=== PATIENT | male | born 1995 | race Caucasian/White ===

== ENCOUNTER 2022-06-04 18:34 | Emergency (ER) | payer OTHER, SELFPAY ==
[2022-06-04 18:38] VITALS: BP 135/96; PULSE 80; RESP 16; TEMP 36.6; O2SAT 99; BMI 30.9
--- NOTE | 2022-06-04 18:42 | DI.RAD.S_ITS ---
PROCEDURE: XR TIBIA FUBULA RT 2V INDICATIONS: achilles pain- heard pop in calf playing basketball TECHNIQUE: 2 views of the tibia and fibula were acquired. COMPARISON: None. FINDINGS: Bones: No displaced fracture. No dislocation. A linear lucency in the tibia is favored to represent a vascular channel. Soft tissues: No suspicious calcifications. Tendinous structures are not well evaluated on radiograph. IMPRESSION: No acute radiographic osseous abnormality. If there is concern for tendinous injury, consider MRI evaluation. Achilles tendon injury can also be evaluated with ultrasound if there is concern for rupture. Dictated by: Dusty Sharpe M.D. on 06/04/2022 at 19:11 Approved by: Dusty Sharpe M.D. on 06/04/2022 at 19:13
--- NOTE | 2022-06-04 18:51 | ED.LOWEXIN ---
HPI - Extremity Injury (Lower) General Chief Complaint: Extremity Injury, Lower Stated Complaint: RLE injury Time Seen by Provider: 06/04/22 18:43 History of Present Illness HPI Narrative: Patient is a 27-year-old healthy male who presents with right lower leg injury. He thinks he ruptured his Achilles tendon. He was playing baseball he went to run he heard a snap he had instant calf pain. He has limited flexion and extension of his ankle and calf pain. He came by ambulance he received a dose of fentanyl. He has no knee pain or other injury. Related Data Previous Rx's Medication Instructions Recorded hydrocodone 5 mg-acetaminophen 325 1 tab PO Q6H PRN pain #10 tabs 06/04/22 mg tablet Allergies Allergy/AdvReac Type Severity Reaction Status Date / Time No Known Drug Allergies Allergy Verified 06/04/22 19:57 Review of Systems Review of Systems ROS Unobtainable: All systems reviewed & are unremarkable except as noted in HPI and below Exam Initial Vital Signs Initial Vital Signs: Vital Signs Temperature 97.8 F 06/04/22 18:38 Pulse Rate 80 06/04/22 18:38 Respiratory Rate 16 06/04/22 18:38 Blood Pressure 135/96 H 06/04/22 18:38 Pulse Oximetry 99 06/04/22 18:38 Oxygen Delivery Method Room Air 06/04/22 18:38 GENERAL: Healthy 27-year-old male CARDIOVASCULAR: peripheral pulses in tact, cap refill <2 sec RESPIRATORY: No respiratory distress, speaks in full sentences without difficulty EXTREMITIES: Normal range of motion, no clubbing or edema. Neurovascularly intact Right knee within normal limits right ankle no deformity distal pedal pulse intact Achilles tendon is not felt, positive Post sign on the right negative Post sign on the left NEUROLOGICAL: Cranial nerves II through XII grossly intact. Normal gait and speech. SKIN: Warm, dry, no petechiae, no rashes or lesions. Course Orders Ordered: ED Orders 06/04/22 18:42 XR tibia fibula RT 2V Stat Discontinued Medications Hydrocodone Bitart/Acetaminophen (Hydrocodone/Acet 5/325 Prepack) 1 bottle MISC SEEINSTR ONE Stop: 06/04/22 19:41 Last Admin: 06/04/22 20:03 Dose: 1 bottle Documented By: GC Ketorolac Tromethamine (Ketorolac 30 Mg/Ml Vial) 15 mg IV NOW ONE Stop: 06/04/22 19:41 Last Admin: 06/04/22 20:02 Dose: 15 mg Documented By: OANH Vital Signs Vital signs: Vital Signs - 8 hr 06/04/22 18:38 06/04/22 19:15 06/04/22 20:17 Temperature 97.8 F 97.6 F Pulse Rate 80 76 Pulse Rate [Left Dorsalis Pedis] 70 Respiratory Rate 16 16 Blood Pressure 135/96 H 132/70 Pulse Oximetry 99 99 Oxygen Delivery Method Room Air Room Air MDM - Extremity Injury (Lower) Imaging Data Extremity x-ray #1: Radiologist's Impression: PROCEDURE:? XR TIBIA FUBULA RT 2V ? INDICATIONS:? achilles pain- heard pop in calf playing basketball ? TECHNIQUE:? 2 views of the tibia and fibula were acquired.? ? COMPARISON:? None. ? FINDINGS:? ? Bones:? No displaced fracture.? No dislocation.? A linear lucency in the tibia is favored to represent a vascular channel. ? Soft tissues:? No suspicious calcifications.? Tendinous structures are not well evaluated on radiograph. ? IMPRESSION:? No acute radiographic osseous abnormality.? If there is concern for tendinous injury, consider MRI evaluation.? Achilles tendon injury can also be evaluated with ultrasound if there is concern for rupture.? ? ? Dictated by: Dusty Sharpe M.D. on 06/04/2022 at 19:11 ? ? [facility] Narrative Medical decision making narrative: Patient 27-year-old male who presents with right Achilles rupture. He is neurovascularly intact. Dr. Teresa orthopedics has been consulted recommends boot with an elevated heel minimal weight-bearing follow-up in clinic. Will need surgery not emergent and currently the OR is not in service. Discharge Plan Departure Patient Disposition: Home Clinical Impression: Rupture, tendon, Achilles Qualifiers: Encounter type: initial encounter Laterality: right Qualified Code(s): S86.011A - Strain of right Achilles tendon, initial encounter Instructions: DI for Achilles Tendon Rupture Activity Restrictions/Additional Instructions: *You have been diagnosed with Achilles tendon rupture *What to do: Keep foot in boot and use crutches minimal weight-bearing, sleeping boot You will need surgery, unclear of exact timeline, our OR is currently shut down but expected to be back up and running later this week *Continue to take medications as directed [place] 1 tablet every 6 hours if needed for severe pain--> SENT TO DOD Motrin 600 mg every 6 hours if needed for [id number] pain *Follow up with your primary care provider in 2-3 days or call [phone] Call orthopedics tomorrow to schedule follow-up appointment *Return to ER if you should have increasing pain swelling numbness tingling [or] any new, worsening or concerning symptoms CONTROLLED SUBSTANCE DISCHARGE (Narcotoic/benzodiazepine/Flexeril/Phenergan) 1. You have been prescribed narcotic medications, it does have acetaminophen/Tylenol/paracetamol in it, DO NOT TAKE MORE THAN 4,00mg in 24 hours of Tylenol. TRAMADOL DOES NOT CONTAIN TYLENOL 2. Please understand that we cannot provide further refills of narcotics, benzodiazepines or controlled substances through the ED and her pain management will need to be through your provider. 3. While on these medications you cannot drive or operate heavy machinery. 4. You cannot sign legal documents or perform any duties such as this. 5. As long as you're taking opiate pain medications he should also be taking a stool softener such as Colace, Dulcolax, MiraLAX or prune juice, to help avoid constipation. Prescriptions: New hydrocodone-acetaminophen 5-325 mg tablet 1 tab PO Q6H PRN (Reason: pain) Qty: 10 0RF Referrals: Provider,Sam BRITO [Primary Care Provider] - Maisha Teresa MD [Physician] - Stand Alone Forms: Patient Portal/API, Work Release Note
[2022-06-04 19:15] VITALS: PULSE 70
[2022-06-04] MEDS: KETOROLAC 30 MG/ML VIAL 15 MG IV (20:02)
[2022-06-04] MEDS: HYDROCODONE/ACET 5/325 PREPACK 1 BOTTLE MISC (20:03)
[2022-06-04 20:17] VITALS: BP 132/70; PULSE 76; RESP 16; TEMP 36.4; O2SAT 99
== END 2022-06-04 20:19 | disposition home or self-care (01) ==
PROVIDERS: Emergency Provider Emergency Medicine
DX: S86.011A Strain of right Achilles tendon, initial encounter (principal); W18.30XA Fall on same level, unspecified, initial encounter; Y93.64 Activity, baseball
CPT/HCPCS: 73590; 96374; 99284; J1885

== ENCOUNTER 2023-06-11 13:57 | Emergency (ER) | payer OTHER, SELFPAY ==
[2023-06-11 14:10] VITALS: BP 130/66; PULSE 75; RESP 18; TEMP 36.4; O2SAT 99; BMI 32.8
--- NOTE | 2023-06-11 14:48 | DI.RAD.S_ITS ---
PROCEDURE: XR KNEE RT 3V INDICATIONS: pain, twisted leg while playing TECHNIQUE: 3 views of the knee were acquired. COMPARISON: None. FINDINGS: Bones: No fractures or dislocations. No suspicious bony lesions. Soft tissues: No joint effusion. No suspicious soft tissue calcifications. IMPRESSION: No acute bony abnormality or significant effusion. Dictated by: Anil Garcia M.D. on 06/11/2023 at 15:42 Approved by: Anil Garcia M.D. on 06/11/2023 at 15:42
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
[2023-06-11 16:16] VITALS: PULSE 79; RESP 16; O2SAT 99
--- NOTE | 2023-06-11 16:28 | ED.LOWEXIN ---
HPI - Extremity Injury (Lower) <Ayah Mary PA-C - Last Filed: 06/11/23 16:33> General Chief Complaint: Extremity Injury, Lower Stated Complaint: R Knee Injury Time Seen by Provider: 06/11/23 14:47 Source: patient Mode of arrival: Wheelchair History of Present Illness HPI Narrative: 28-year-old male with no reported past medical history presents to the ED status post a right knee injury sustained just prior to arrival. Patient states he was playing extreme Frisbee when he stepped the wrong way and twisted his knee. Patient states that it has been extremely painful to bear weight and walk since that injury. Denies numbness, tingling, weakness. Related Data Previous Rx's Medication Instructions Recorded hydrocodone 5 mg-acetaminophen 325 1 tab PO Q6H PRN pain #10 tabs 06/04/22 mg tablet Allergies Allergy/AdvReac Type Severity Reaction Status Date / Time No Known Drug Allergies Allergy Verified 06/04/22 19:57 Review of Systems <Ayah Mary PA-C - Last Filed: 06/11/23 16:33> Constitutional Constitutional: Denies chills, Denies fatigue, Denies fever(s), Denies frequent falls, Denies lethargy and Denies weakness Eyes Eyes: Denies change in vision, Denies eye discharge, Denies irritation and Denies loss of vision ENT Ears, Nose, Mouth, and Throat: Denies change in voice, Denies dizziness, Denies neck pain, Denies sore throat and Denies throat swelling Cardiovascular Cardiovascular: Denies chest pain, Denies irregular heart rhythm, Denies lightheadedness, Denies palpitations, Denies dyspnea, Denies dyspnea on exertion and Denies orthopnea Respiratory Respiratory: Denies cough, Denies dyspnea, Denies dyspnea on exertion and Denies wheezing Gastrointestinal Gastrointestinal: Denies abdominal pain, Denies change in bowel habits, Denies diarrhea, Denies nausea and Denies vomiting Musculoskeletal Musculoskeletal: Denies neck pain and Denies numbness Comments: Right knee pain Integumentary/Breasts Skin/Breast: Denies pruritus, Denies erythema, Denies rash and Denies wounds Neurologic Neurologic: Denies behavioral changes, Denies confusion, Denies dizziness, Denies frequent falls, Denies loss of vision, Denies numbness and Denies weakness Psychiatric Psychiatric: Denies anxiety, Denies behavioral changes, Denies confusion, Denies depression, Denies homicidal ideation and Denies suicidal ideation Endocrine Endocrine: Denies fatigue, Denies flushing and Denies palpitations Hematologic/Lymphatic Hematologic/Lymphatic: Denies easy bruising Allergic/Immunologic Allergic/Immunologic: Denies urticaria, Denies throat swelling and Denies wheezing Patient History <Ayah Mary PA-C - Last Filed: 06/11/23 16:33> Social History Smoking Status: Current every day smoker alcohol intake: current Smoking Status: Current every day smoker tobacco type: vaping alcohol intake frequency: a few times a week Substance Use Type: does not use Exam <Ayah Mary PA-C - Last Filed: 06/11/23 16:33> Narrative Exam Narrative: Const General:?cooperative, healthy appearing and comfortable [facility] Head:?normal to inspection Ears:?hearing grossly normal bilaterally Nose:?external nose normal Face and sinus:?normal facial exam and sinuses nontender Mouth:?oral mucosae normal Throat:?posterior oropharynx normal Eyes General:?appearance normal, both eyes and all related structures Neck Neck:?normal visual inspection and no lymphadenopathy noted Resp Effort & Inspection:?normal respiratory effort Auscultation:?clear to auscultation bilaterally Cardio Rate:?regular rate Rhythm:?regular rhythm Musculoskeletal There is some tenderness to palpation of the right lateral knee. No swelling, deformities. Strength and sensation is intact. There is full range of motion. Patient is neurovascularly intact. Patient is able to walk, albeit with pain Neuro General:?patient alert, patient awake and patient oriented x3 Initial Vital Signs Initial Vital Signs: Vital Signs Temperature 97.6 F 06/11/23 14:10 Pulse Rate 75 06/11/23 14:10 Respiratory Rate 18 06/11/23 14:10 Blood Pressure 130/66 06/11/23 14:10 Pulse Oximetry 99 06/11/23 14:10 Oxygen Delivery Method Room Air 06/11/23 14:10 <Mary Gonzalez DO - Last Filed: 06/12/23 08:14> Initial Vital Signs Initial Vital Signs: Vital Signs Temperature 97.6 F 06/11/23 14:10 Pulse Rate 75 06/11/23 14:10 Respiratory Rate 18 06/11/23 14:10 Blood Pressure 130/66 06/11/23 14:10 Pulse Oximetry 99 06/11/23 14:10 Oxygen Delivery Method Room Air 06/11/23 14:10 Course <Ayah Mary PA-C - Last Filed: 06/11/23 16:33> Orders Ordered: ED Orders 06/11/23 14:48 XR knee RT 3V Stat Vital Signs Vital signs: Vital Signs - 8 hr 06/11/23 14:10 06/11/23 16:16 Temperature 97.6 F Pulse Rate 75 79 Respiratory Rate 18 16 Blood Pressure 130/66 Pulse Oximetry 99 99 Oxygen Delivery Method Room Air Room Air <Mary Gonzalez DO - Last Filed: 06/12/23 08:14> Orders Ordered: ED Orders 06/11/23 14:48 XR knee RT 3V Stat Vital Signs Vital signs: Vital Signs - 8 hr 06/11/23 14:10 06/11/23 16:16 Temperature 97.6 F Pulse Rate 75 79 Respiratory Rate 18 16 Blood Pressure 130/66 Pulse Oximetry 99 99 Oxygen Delivery Method Room Air Room Air MDM - Extremity Injury (Lower) <Ayah Mary PA-C - Last Filed: 06/11/23 16:33> MDM Narrative Medical decision making narrative: 28-year-old male with no reported past medical history presents to the ED status post a right knee injury sustained just prior to arrival. Concern for fracture/dislocation versus musculoskeletal sprain/strain versus other. Obtained x-rays with no acute findings. Patient's symptoms most consistent with a musculoskeletal sprain/strain/contusion. Recommend [place] wrapping the knee or knee brace, rest, ice, elevation, ibuprofen. Recommend follow-up with PCP as soon as possible. ED return precautions discussed with patient. Patient verbalized understanding. Medical records reviewed: Yes Discharge Plan Departure Patient Disposition: Home Clinical Impression: Knee pain, acute Qualifiers: Laterality: right Qualified Code(s): M25.561 - Pain in right knee Instructions: DI for Knee Pain Activity Restrictions/Additional Instructions: You were evaluated in the ED today for a knee injury. Your x-ray did not show any fractures or dislocations. Your symptoms are likely due to a musculoskeletal sprain/strain or contusion of the knee. You may take 800 mg of ibuprofen every 8 hours for pain. You may continue to rest, ice, apply a knee brace, elevate your leg. Please follow-up with your PCP as soon as possible. Return to the ED if you have worsening symptoms, numbness, tingling, weakness. Prescriptions: No Action hydrocodone-acetaminophen 5-325 mg tablet 1 tab PO Q6H PRN (Reason: pain) Qty: 10 0RF Referrals: Deion Jurado PA-C [Primary Care Provider] - Stand Alone Forms: Patient Portal/API ED Sign-out <Mary Gonzalez DO - Last Filed: 06/12/23 08:14> Cosign ED Attending Enrriqueature Attestation: I was immediately available in the department for consultation.
== END 2023-06-11 16:17 | disposition home or self-care (01) ==
PROVIDERS: Emergency Provider Student in an Organized Health Care Education/Training Program; PCP Physician Assistant
DX: M25.561 Pain in right knee (principal); X50.1XXA Overexertion from prolonged static or awkward postures, initial encounter
CPT/HCPCS: 73562; 99283

== ENCOUNTER → 2023-07-17 13:18 | Outpatient (CLI) | payer OTHER, SELFPAY ==
--- NOTE | 2023-07-17 | DI.MRI.S_ITS ---
PROCEDURE: MR KNEE RT WO CON INDICATIONS: PAIN IN RT KNEE TECHNIQUE: Noncontrast sagittal PD fast spin echo and T2 fast spin echo with fat saturation, sagittal 3-D FLASH with fat saturation; coronal T1 spin echo and PD fast spin echo with fat saturation, and axial PD fast spin echo with fat saturation through the knee. COMPARISON: None. FINDINGS: Image quality: Excellent. Menisci: In the medial meniscus, there is mild inner margin blunting in the meniscus body. No extrusion of the medial meniscus. The lateral meniscus is unremarkable. Cruciate ligaments: The anterior and posterior cruciate ligaments appear intact. Medial structures: The medial collateral ligament appears intact. The posterior oblique ligament, semimembranosus tendon insertions, oblique popliteal ligament, and meniscocapsular junction appear intact. Visualized portions of the pes anserinus tendons appear normal. No abnormal bursal fluid. Lateral structures: The biceps femoris tendon is intact. Low-grade tear of the proximal fibular collateral ligament with adjacent soft tissue edema. The popliteal tendon and muscle is unremarkable. Anterior structures: The quadriceps and patellar tendon are intact. Mild superolateral Hoffa's fat pad edema, raising concern for patellar maltracking. The patellofemoral ligament are intact. Bones and cartilage: Cartilage of the patella is unremarkable. Cartilage of the trochlea is well maintained. There is marked contusion of the medial trochlea. There is nondisplaced fracture of the anterior medial tibial plateau. Cartilage of the medial compartment is well maintained. Cartilage of the lateral compartment is well maintained. Joint space: Small knee effusion. Small popliteal cyst. Mild muscle edema anterior to the proximal fibular head. IMPRESSION: 1. Mild inner margin blunting of the medial meniscus body. 2. Low-grade tear of the proximal fibular collateral ligament with adjacent soft tissue edema, raising concern for posterolateral corner injury. 3. Findings suggestive of patellar maltracking. 4. Marked marrow contusion of the medial trochlea. Nondisplaced fracture of the anterior medial tibial plateau. Dictated by: Melody Wheeler M.D. on 07/17/2023 at 15:57 Approved by: Melody Wheeler M.D. on 07/17/2023 at 16:12
== END ==
LOC: MRI 13:19
PROVIDERS: PCP Physician Assistant; Referring Provider Orthopaedic Surgery; Visit Provider Orthopaedic Surgery
DX: S83.421A Sprain of lateral collateral ligament of right knee, initial encounter (principal); S82.144A Nondisplaced bicondylar fracture of right tibia, initial encounter for closed fracture; S80.01XA Contusion of right knee, initial encounter; M25.561 Pain in right knee
CPT/HCPCS: 73721